=== PATIENT | male | born 1965 ===

== ENCOUNTER 2019-02-26 18:43 | Emergency (ER) | payer SELFPAY ==
[2019-02-26 18:46] VITALS: BP 237/134; PULSE 92; RESP 14; TEMP 36.9; O2SAT 100
[2019-02-26 18:57] VITALS: RESP 14
--- NOTE | 2019-02-26 19:10 | ED.GENADUL_ITS ---
Discharge Plan Disposition Patient Disposition: HOME Condition: Improving Discharge Details Chief Complaint: GenMedical Clinical Impression: Hypertension Primary Care Provider: None,None ED Provider: Brandon Choi Home Meds and New Rx's Prescriptions: New lisinopril 5 mg tablet 5 mg PO DAILY Qty: 30 RF: 0 Continued garlic 1,000 mg Capsule 2,000 mg PO QAM RF: 0 Discontinued biotin 10,000 mcg Capsule 10,000 mcg PO DAILY RF: 0 Discharge Instructions Instructions: Hypertension (ED) Additional Instructions: Home I recommend that you stop taking your biotin as it can interfere with laboratory analysis causing false results. Please begin taking lisinopril, next dose tomorrow. I recommend you take a baby aspirin, 81 mg, daily as we discussed. We will arrange an outpatient follow-up for you in clinic to establish primary care and to have your blood pressure rechecked. Return if you develop a headache, chest pain, or any other acute concerns Medical Decision Making 53-year-old male who has not established local primary care since recently moving. He has a history of hypertension states he used to take lisinopril. Note that he does take biotin and garlic supplements. Over the past 3 to 4 days he felt lightheaded and noted outpatient blood pressures today at the pharmacy of approximately 230/120. He denies headache, chest pain, no change to urination. He arrives afebrile and well-appearing but with a blood pressure 237/134. His neurologic exam is unremarkable. Differential diagnosis includes hypertension, hypertensive urgency, must exclude intracranial hemorrhage. Patient referred for laboratory testing (with note of Biotin use), EKG, CT scan of the head. CT of the head reveals microvascular ischemic changes. EKG reassuring. Laboratories without significant acute finding. Blood pressure is slowly correcting to 190/100. Patient remains asymptomatic and without acute focal neurologic findings. I will restart him on lisinopril 5 mg daily. I also recommend he take a baby aspirin daily. We will arrange for him to follow-up with primary care to establish care and for repeat check of blood pressure. Discussed home care and follow-up with patient and his at the bedside prior to discharge. Lab Data Lab results reviewed: Yes I reviewed the patient's lab results. Laboratory Results - last 24 hr 02/26/19 02/26/19 02/26/19 19:19 19:25 19:25 WBC 9.25 RBC 5.22 Hgb 15.4 Hct 45.7 MCV 87.5 MCH 29.5 MCHC 33.7 RDW 12.7 Plt Count 298 MPV 9.1 Immature Gran % 0.0 Neutrophils % 50.7 Lymphocytes % 38.1 Monocytes % 8.5 Eosinophils % 2.3 Basophils % 0.4 Absolute Neutrophils 4.69 Absolute Lymphocytes 3.52 H Absolute Monocytes 0.79 H Absolute Eosinophils 0.21 Absolute Basophils 0.04 Sodium 141 Potassium 3.5 Chloride 103 Carbon Dioxide 26.4 Anion Gap 11.6 H BUN 15 Creatinine 1.17 Estimated GFR/1.73 m2 >= 60.00 Glucose 103 H Calcium 8.6 Magnesium 2.2 Total Bilirubin 0.4 AST 23 ALT 43 Alkaline Phosphatase 78 Troponin I < 0.02 Total Protein 7.6 Albumin 4.4 Urine Color Yellow Urine Clarity Clear Urine pH 6.5 Ur Specific [place] 1.020 Urine Protein Negative Urine Ketones Negative Urine Blood Negative Urine Nitrite Negative Urine Bilirubin Negative Urine Urobilinogen 0.2 Ur Leukocyte Esterase Negative Urine Glucose Negative ECG Data Attestation: I personally reviewed and interpreted this ECG (s) as follows: Interpretation: Normal sinus rhythm with a rate of 71, the QRS is narrow, there is J-point elevation present in leads V1 and V2. Nonspecific ST segment flattening in leads V5 and V6. Nonspecific ST segment changes in the inferior leads HPI General Mode of arrival: ambulatory . Date/Time Provider Initiated Documentation: 02/26/19 18:45 . Limitations to Documentation: no limitations . Information obtained by: patient and family . History of Present Illness 53 year old M presents to the emergency department with the chief complaint of High blood pressure, described as moderate, Quality is described as constant, Patient reports no radiation. Patient started experiencing this day(s) and it has been constant. No relieving factors improve symptom(s), No exacerbating factors reported . Patient notes other (Feels lightheaded, no chest pain, no headache.). Patient did receive the following treatments prior to arrival, none Related Data Home Medications Medication Instructions Recorded Confirmed garlic 2,000 mg PO QAM 02/26/19 02/26/19 lisinopril 5 mg PO DAILY #30 tab 02/26/19 Previous Rx's Medication Instructions Recorded lisinopril 5 mg PO DAILY #30 tab 02/26/19 Allergies Allergy/AdvReac Type Severity Reaction Status Date / Time No Known Allergies Allergy Unverified 02/26/19 18:54 General Stated Complaint: GenMedical JENNIFER: 3 Review of Systems Review of Systems Patient states he felt these had difficulty with writing with his right hand but no falls, difficulty with gait, no facial droop or change to vision, no change in speech 6 systems reviewed and otherwise negative [facility] [place] Social History Smoking/Tobacco Use Status: Former Tobacco Use Alcohol Intake: never Drug use: Never Substance use type: does not use Do you feel safe at home: Yes Do you feel safe in your relationship?: Yes Exam Narrative Exam Narrative: GEN: awake, alert, oriented 3. Pleasant, well groomed, interactive. HEAD: Normocephalic, atraumatic ENT: Mucous membranes moist, oropharynx unremarkable, External ear exam unremarkable EYES: PERRL, EOMI NECK: Full ROM, no LATOYA, no menigismus CHEST/RESP: Nontender, clear to auscultation bilateral, no wheeze/rhonchi/rales CARDIOVASCULAR: RRR, no murmur, rub sonu. 2+ Rad pulse bilateral ABDOMEN: Soft, nontender, no mass. +Bowel sounds EXT: Full ROM, no edema, no rash. Cranial nerves II through XII intact. [id number] intact. Visual devlin intact to confrontation. Romberg negative Neuro: Grossly normal neurologic exam, conversant, interactive. Psych: Speech fluent, thoughts congruent, affect normal Course Vital Signs Temperature 36.9 C 02/26/19 18:46 Pulse 92 H 02/26/19 18:46 Respiratory Rate 14 02/26/19 18:46 Blood Pressure 237/134 H 02/26/19 18:46 Pulse Oximetry 100 02/26/19 18:46 Temperature 36.9 C 02/26/19 18:46 Temperature Source Skin 02/26/19 18:46 Pulse 92 H 02/26/19 18:46 Respiratory Rate 14 02/26/19 18:57 Respiratory Effort 02/26/19 18:57 Respiratory Depth Normal 02/26/19 18:57 Respiratory Pattern Normal 02/26/19 18:57 Blood Pressure 237/134 H 02/26/19 18:46 Blood Pressure Position Sitting 02/26/19 18:46 Pulse Oximetry 100 02/26/19 18:46 Oxygen Delivery Method Room Air 02/26/19 18:46 Oxygen Flow Rate 0 02/26/19 18:46 Comment new to the area - need local pcp 02/26/19 18:46
--- NOTE | 2019-02-26 19:10 | DI.CT_ITS ---
SYMPTOM/DIAGNOSIS: HYPERTENSION, LIGHTHEADED NONCONTRAST HEAD CT: There are no prior comparison exams. There are hypodensities seen in the basal ganglia as well as in the white matter which could be secondary to old infarcts, demyelinating disease or previous infection. The ventricles are normal in size. There is no significant atrophy. There is no evidence of skull fracture or sinus opacification. There is increased soft tissue density seen in the midline in the frontal region near the vertex. IMPRESSION: White matter changes. Clinical correlation is recommended.
[2019-02-26 19:23] LABS: Bilirubin Negative (Negative); Blood Negative (Negative); Clarity Clear; Glucose Negative (Negative); Ketones Negative (Negative); Leukocyte Esterase Negative (Negative); Nitrite Negative (Negative); Urobilinogen 0.2 EU/dL (Up TO 0.2); pH 6.5 (5-8)
[2019-02-26] MEDS: Normal Saline Flush 10 ML SYR IVP (19:25)
[2019-02-26] MEDS: cloNIDine 0.1 MG TAB PO (19:32)
[2019-02-26 19:36] LABS: Absolute Basophil Count 0.04 k/cumm (0.0-0.2); Absolute Eosinophil Count 0.21 k/cumm (0.0-0.7); Absolute Lymphocyte Count 3.52 k/cumm (1.2-3.4); Absolute Monocyte Count 0.79 k/cumm (0.11-0.7); Absolute Neutrophil Count 4.69 k/cumm (1.2-6.7); Basophils % 0.4; Eosinophils % 2.3; HCT 45.7 % (40.0-50.0); HGB 15.4 g/dL (13.5-17.5); Lymphocytes % 38.1; Mean Corp. HGB Concentration 33.7 g/dL (32.0-36.0); Mean Corpuscular Hemoglobin 29.5 pg (27.0-33.0); Mean Corpuscular Volume 87.5 fL (80-95); Mean Platelet Volume 9.1 fL (8.0-11.0); Monocytes % 8.5; Neutrophils % 50.7; Platelet Count 298 x1000/uL (130-400); RBC 5.22 m/cumm (4.50-6.00); RBC Distribution Width 12.7 % (11.8-14.1); White Blood Cell Count 9.25 k/cumm (4.4-10.8)
[2019-02-26 19:46] VITALS: BP 197/100; PULSE 60; O2SAT 97
[2019-02-26 19:50] VITALS: BP 221/112; PULSE 67; RESP 14; TEMP 36.7; O2SAT 97
[2019-02-26 19:53] LABS: ALT 43 U/L (12-78); AST 23 U/L (15-37); Albumin 4.4 g/dL (3.4-5.0); Alkaline Phosphatase 78 U/L (46-116); Anion Gap 11.6 mmol/L (3-11); BUN 15 mg/dL (7-18); Bilirubin, Total 0.4 mg/dL (0.2-1.0); CO2 26.4 mmol/L (21.0-32.0); CREATININE 1.17 mg/dL (0.70-1.30); Calcium 8.6 mg/dL (8.5-10.1); Chloride 103 mmol/L (98-107); Glucose 103 mg/dL (70-100); Magnesium 2.2 mg/dL (1.8-2.4); Potassium 3.5 mmol/L (3.5-5.1); Sodium 141 mmol/L (136-145); Total Protein 7.6 g/dL (6.4-8.2); Troponin I < 0.02 ng/mL (0.00-0.06)
--- NOTE | 2019-02-26 19:56 | DI.VRAD_ITS ---
EXAM: CT Head Without Contrast EXAM DATE/TIME: 02/26/2019 7:12 PM CLINICAL HISTORY: 53 years old, male; Signs and symptoms; Dizziness and other: Hypertension TECHNIQUE: Imaging protocol: Axial computed tomography images of the head without contrast. Coronal and sagittal reformatted images were created and reviewed. Radiation optimization: All CT scans at this facility use at least one of these dose optimization techniques: automated exposure control; mA and/or kV adjustment per patient size (includes targeted exams where dose is matched to clinical indication); or iterative reconstruction. COMPARISON: No relevant prior studies available. FINDINGS: Brain: No intracranial hemorrhage. Several foci of periventricular and subcortical white matter hypoattenuation, some of which are oriented perpendicular to the long axis of the lateral ventricles. Foci of hypoattenuation in the genu and posterior limb of the RIGHT internal capsule and LEFT subinsular white matter which may represent chronic lacunar infarcts. No extra-axial collections. No mass or midline shift. Normal james-white differentiation. Ventricles: The ventricles are normal in position. No hydrocephalus. Bones/joints: No acute fracture. No focal osseous lesions. Sinuses: The visualized paranasal sinuses are well-aerated. There are no air fluid levels to suggest acute sinusitis. Mastoid air cells: The tympanomastoid air cells are normally aerated as visualized. Orbits: The orbits are unremarkable as visualized. Soft tissues: Nodular soft tissue structure in the high RIGHT frontal scalp measuring 1.6 x 1.3 x 0.7 cm (series 3, image 39 and series 8, image 44. No involvement of the underlying outer table of frontal bone. Vasculature: Mild calcification cavernous carotid arteries. IMPRESSION: 1. White matter hypoattenuation. This is most consistent with chronic microvascular ischemic change. However, some of the lesions are oriented perpendicular to the long axis of the lateral ventricles raising the possibility of either demyelinating disease. Clinical correlation advised. 2. Hypoattenuating foci in the RIGHT internal capsule and LEFT subinsular white matter may represent chronic the infarcts. As a negative CT scan does not exclude an acute stroke, if there is persistent concern for an acute infarct, followup MRI of the brain with diffusion weighted images (if there are no contraindications to MRI) or CT angiogram of the head and neck with perfusion imaging could be performed. Alternatively CT scan of the brain within 24 hours is recommended. 3. 1.6 cm RIGHT frontal scalp lesion. Please correlate clinically. Dictated and Authenticated by: Karly Harris MD. Ordering:MUSA Taylor MD
[2019-02-26] MEDS: Lisinopril 10 MG TAB (20:03)
[2019-02-26] MEDS: Aspirin 81 MG CHEW PO (20:04)
[2019-02-26 20:17] VITALS: BP 197/100
--- NOTE | 2019-02-27 17:37 | NUR.NOTE ---
Nursing Note: Referral faxed to [facility]. Luis Rose is automotive salesperson for telephone call. Aleyda Goodrich.
== END 2019-02-26 20:02 | disposition home or self-care (01) ==
LOC: ER 20:34
PROVIDERS: Emergency Provider Emergency Medicine
DX: I10 Essential (primary) hypertension (principal)
CPT/HCPCS: 36415; 36416; 80053; 82962; 93005; 99285; 70450; 81003; 83735; 84484; 85025; 93010